=== PATIENT | male | born 1970 | race Hispanic/Latino ===

== ENCOUNTER → 2022-05-13 | Outpatient (CLI) | payer BC | END | disposition home or self-care (01) | LOC: SHCH 11:23 | PROVIDERS: ATTEND Internal Medicine Cardiovascular Disease | DX: R01.1 Cardiac murmur, unspecified (principal) | CPT/HCPCS: 93306 ==

== ENCOUNTER → 2022-07-15 | Outpatient (CLI) | payer BC | END | disposition home or self-care (01) | LOC: SHCH 11:47 | PROVIDERS: ATTEND Internal Medicine Cardiovascular Disease | DX: I87.2 Venous insufficiency (chronic) (peripheral) (principal) | CPT/HCPCS: 93970 ==

== ENCOUNTER → 2022-12-23 | Outpatient (CLI) | payer BC | END | disposition home or self-care (01) | LOC: SHCH 13:17 | PROVIDERS: ATTEND Internal Medicine Cardiovascular Disease | DX: I35.0 Nonrheumatic aortic (valve) stenosis (principal); I10 Essential (primary) hypertension | CPT/HCPCS: 93306 ==

== ENCOUNTER 2023-01-26 05:55 | Day surgery (SDC) | payer BC ==
[2023-01-25 09:16] VITALS: BP 150/90; PULSE 79; RESP 16
[2023-01-25 09:19] LABS: BASOPHILS % (AUTO) 0.7 % (0.0-5.0); EOSINOPHILS % (AUTO) 2.2 % (0.0-8.0); HEMATOCRIT 33.5 % (42-54); LYMPHOCYTES % (AUTO) 29.4 % (21.0-51.0); MEAN CORPUSCULAR HEMOGLOBIN 30.2 pg (27.0-33.0); MEAN CORPUSCULAR HGB CONC 32.2 g/dL (32.0-36.0); MEAN CORPUSCULAR VOLUME 93.6 fL (79-99); MONOCYTES % (AUTO) 9.4 % (3.0-13.0); NEUTROPHILS % (AUTO) 57.9 % (40.0-77.0); PLATELET COUNT (AUTO) 306 K/uL (130-400); RED BLOOD CELL COUNT(AUTO) 3.58 MIL/uL (4.50-6.20); RED CELL DISTRIBUTION WIDTH 12.8 % (11.0-15.5); WHITE BLOOD COUNT (AUTO) 9.2 K/uL (4.8-10.8)
[2023-01-25 09:28] LABS: CREATININE 4.4 mg/dL (0.5-1.5); POTASSIUM 4.4 mmol/L (3.5-5.1)
[2023-01-25 10:09] LABS: INR 0.93 (0.85-1.15); PROTHROMBIN TIME 10.5 SEC (9.6-11.6)
[2023-01-25 10:10] LABS: PARTIAL THROMBOPLASTIN TIME 31.1 SEC (26.3-35.5)
[~2023-01-26] VITALS: Ht 180.3 cm; Wt 86.6 kg
[2023-01-26] VITALS (10 sets, daily range): BP systolic 116–164; BP diastolic 73–90; PULSE 79–84; RESP 10–22
[~2023-01-26 05:55] MED LIST: AEC81 PO; BUME1TAB6 PO; CHOL100046 PO; FERS325 PO; FOLI1TAB85 PO; INSLAN SQ; INSU100C6 SQ; METO-408 PO; NIFE-40 PO
[2023-01-26] MEDS ORDERED: 0.9%NACL 1000ML 1,000 ML IV ONE (06:13)
[2023-01-26] MEDS ORDERED: LIDOCAINE HCL 400MG/20ML VIAL ONE (07:11)
[2023-01-26] MEDS ORDERED: HEPARIN 10,000 UNIT/10ML (1,000 UNIT/ML) VIAL ONE (07:12)
[2023-01-26] MEDS ORDERED: IOHEXOL 350 MG/ML 100ML INFUS..BTL IV ONE (07:12)
[2023-01-26] MEDS ORDERED: NITROGLYCERIN 50MG VIAL ONE (07:12)
[2023-01-26] MEDS ORDERED: FENTANYL CITRATE PF 50 MCG/1 ML 2ML VIAL ONE (07:48)
[2023-01-26] MEDS ORDERED: MIDAZOLAM HCL 1 MG/ML 2ML VIAL ONE (07:49)
[2023-01-26] MEDS ORDERED: NICARDIPINE 25MG INJ IV ONE (08:01)
[2023-01-26] MEDS ORDERED: HYDRALAZINE 20MG/ML VIAL ONE ×2 (08:44→08:57)
[2023-01-26] MEDS ORDERED: DEXTROSE 50%-WATER 50 ML DISP.SYRIN IV PRN (09:30)
[2023-01-26] MEDS ORDERED: 0.9%NACL 1000ML 1,000 ML IV SCH (09:30)
[2023-01-26] MEDS ORDERED: GLUCAGON 1MG KIT 1 MG ML IM PRN (09:30)
== END 2023-01-26 13:15 | disposition home or self-care (01) ==
LOC: DAH 05:55
PROVIDERS: ATTEND Internal Medicine Cardiovascular Disease
DX: I35.0 Nonrheumatic aortic (valve) stenosis (principal); I25.10 Atherosclerotic heart disease of native coronary artery without angina pectoris; R07.89 Other chest pain; I12.9 Hypertensive chronic kidney disease with stage 1 through stage 4 chronic kidney disease, or unspecified chronic kidney disease; E11.22 Type 2 diabetes mellitus with diabetic chronic kidney disease; N18.4 Chronic kidney disease, stage 4 (severe); E78.5 Hyperlipidemia, unspecified; F17.210 Nicotine dependence, cigarettes, uncomplicated; Z79.82 Long term (current) use of aspirin; Z79.899 Other long term (current) drug therapy; Z79.4 Long term (current) use of insulin; Z72.89 Other problems related to lifestyle; Z98.890 Other specified postprocedural states
CPT/HCPCS: 36415; 71045; 80048; 82948; 85025; 85610; 85730; 93005; 93454; 96360; 96361; 99156; 99157; A4606; C1894; J0360; J1644; J2250; J3010; J3490; J7030; Q9967; A4215; A4216; A4221; A4222; A4223; A4663; C1760; Q9965

== ENCOUNTER → 2023-06-10 | Outpatient (CLI) | payer BC | END | disposition home or self-care (01) | LOC: SHCH 10:35 | PROVIDERS: ATTEND Internal Medicine Cardiovascular Disease | DX: R01.1 Cardiac murmur, unspecified (principal) | CPT/HCPCS: 93306 ==

== ENCOUNTER 2023-12-13 06:29 | Day surgery (SDC) | payer BC, MEDICARE ==
[2023-12-11 09:05] VITALS: BP 133/85; PULSE 76; RESP 18
[2023-12-11 09:09] LABS: BASOPHILS # (AUTO) 0.08 K/uL (0.00-0.20); EOSINOPHILS % (AUTO) 8.7 % (0.0-8.0); HEMATOCRIT 33.8 % (42-54); IMMATURE GRANULOCYTE ABSOLUTE 0.04 K/uL (0-1); LYMPHOCYTES # (AUTO) 1.6 K/uL (1.0-4.8); LYMPHOCYTES % (AUTO) 20.3 % (21.0-51.0); MEAN CORPUSCULAR HEMOGLOBIN 29.1 pg (27.0-33.0); MEAN CORPUSCULAR HGB CONC 31.4 g/dL (32.0-36.0); MEAN CORPUSCULAR VOLUME 92.9 fL (79-99); MONOCYTES # (AUTO) 1.2 K/uL (0.1-1.0); MONOCYTES % (AUTO) 14.3 % (3.0-13.0); NEUTROPHILS # (AUTO) 4.5 K/uL (1.8-7.7); NEUTROPHILS % (AUTO) 55.2 % (40.0-77.0); PLATELET COUNT (AUTO) 275 K/uL (130-400); RED BLOOD CELL COUNT(AUTO) 3.64 MIL/uL (4.50-6.20); RED CELL DISTRIBUTION WIDTH 16.1 % (11.0-15.5); WHITE BLOOD COUNT (AUTO) 8.1 K/uL (4.8-10.8)
[2023-12-11 09:52] LABS: POTASSIUM 3.8 mmol/L (3.5-5.1)
[2023-12-11 10:05] LABS: CREATININE 14.6 mg/dL (0.5-1.3)
[~2023-12-13] VITALS: Ht 180.3 cm; Wt 80.0 kg
[2023-12-13] VITALS (8 sets, daily range): BP systolic 143–164; BP diastolic 85–94; PULSE 77–81; RESP 13–17
[~2023-12-13 06:29] MED LIST changes: +ATOR20TA65 PO; -BUME1TAB6 PO; +BUME2TAB5 PO; +CLON0.2T PO; +ERGO500093 PO; -INSLAN SQ; +SEVE800T7 PO; +SODI650T PO; +SUCR500T PO; +TORS100T16 PO
[2023-12-13] MEDS: 0.9%NACL 1000ML 1,000 ML IV ONE (07:42)
[2023-12-13] MEDS ORDERED: PROPOFOL 10 MG/ML 20ML VIAL IV ONE (07:43)
[2023-12-13] MEDS ORDERED: GLYCOPYRROLATE 0.2 MG/ML 5 ML VIAL ONE (07:43)
== END 2023-12-13 10:40 | disposition home or self-care (01) ==
LOC: DAH 06:29 → EDSTATUS 09:30 → DAH 10:40
PROVIDERS: ATTEND Internal Medicine Cardiovascular Disease
DX: I08.0 Rheumatic disorders of both mitral and aortic valves (principal); I33.0 Acute and subacute infective endocarditis; I25.10 Atherosclerotic heart disease of native coronary artery without angina pectoris; E11.22 Type 2 diabetes mellitus with diabetic chronic kidney disease; I12.0 Hypertensive chronic kidney disease with stage 5 chronic kidney disease or end stage renal disease; N18.6 End stage renal disease; E78.5 Hyperlipidemia, unspecified; I87.2 Venous insufficiency (chronic) (peripheral); Z79.01 Long term (current) use of anticoagulants; Z79.899 Other long term (current) drug therapy; Z99.2 Dependence on renal dialysis
CPT/HCPCS: 80048; 85025; 36415; 93005; 82948; 93325; 93312; J7030; J2704; J3490; A4620; A4215; A4223 ×3; A4657; A4213; A7002; A4222; A4221; A4663; A4216; A4606; 99156; 99157

== ENCOUNTER → 2024-05-06 | Outpatient (CLI) | payer BC, MEDICARE ==
--- NOTE | 2024-05-10 14:42 | HMCSR ---
APPROVED REPORT EXAM: Two-dimensional and M-mode echocardiogram with Doppler and color Doppler. INDICATION ICD: Atherosclerotic heart disease of [place] coronary artery without angina pectoris I25.10 RISK FACTORS Hypertension Hyperlipidemia Diabetes 2D Dimensions RVDd3.8 cmLVEF(%)39.0 (>50%)LVED Vol(simp.)245.0 mL IVSd1.6 (0.7-1.1cm)FS(%)19 %LVES Vol(simp.)147.0 mL LVDd5.5 (3.8-5.6cm)IVC diam1.4 cmLVEF(%, simp.)40 % PWd1.6 (0.7-1.1cm)LA ESV INDEX (BP)51.79 mL/m2 LVDs4.5 (2.5-4.0cm) Aortic Valve AoV Vmax2.3 m/Radha Peak GR20.5 mmHgLVOT Vmax0.9 m/s AoV VTI0.5 mAo Mean GR10.7 mmHgLVOT VTI0.21 m Al P1/2T505 ms Mitral Valve MV E Scow976.7 cm/sDECEL Fyyy512 ms MV A Vmax90.7 cm/sP 1/2 T57 ms E/A ratio1.2MVA (PHT)3.9 cm2 TDI E/E' Oiptwk52.2E/E' Nnponjs98.6 Pulmonary Valve PV Vmax0.8 m/sPV VTI0.20 mPV Mean GR2 mmHg PV Peak GR2.7 mmHg Tricuspid Valve TR Vmax3.1 m/sRAP (EST) 3 fjEsDKVA14.2 mmHg TR Peak GR37.2 mmHg Left Ventricle The left ventricle is normal in size. There is paradoxical septal wall motion noted. The other yeboah are grossly normal in function. Moderate concentric left ventricular hypertrophy. Left ventricular sy stolic function is low-normal, estimated LVEF is 50%. Grade 2 diastolic dysfunction. Right Ventricle The right ventricle is normal size. The right ventricular systolic function is normal. Atria The left atrium is severely dilated, 52ml/m2. The right atrium is dilated. Aortic Valve The aortic valve has been replaced by a well seated and normally functioning bioprosthetic valve. PV 2.3m/s, MG 11mmHg, DVI 0.4 Mild perivalvular leak. AV Dimensionless Index is 0.44 Mitral Valve The mitral valve is normal in structure and function. The leaflets are mildly thickened and calcified . Trace mitral regurgitation. There is no mitral valve stenosis. Tricuspid Valve The tricuspid valve is normal in structure and function. Mild tricuspid regurgitation. RVSP is 37mmHg . Pulmonic Valve Pulmonic valve is not well visualized. Great Vessels The aortic root is not well visualized but is probably normal size. The IVC is normal in size and col lapses >50% with inspiration. Pericardium Trace circumferential pericardial effusion. Conclusion The left atrium is severely dilated, 52ml/m2. The right atrium is dilated. Moderate concentric left ventricular hypertrophy. There is paradoxical septal wall motion noted. The other yeboah are grossly normal in function. Left ventricular systolic function is low-normal, estimated LVEF is 50%. Grade 2 diastolic dysfunction. The aortic valve has been replaced by a well seated and normally functioning bioprosthetic valve. PV 2.3m/s, MG 11mmHg, DVI 0.4 Mild perivalvular leak. Trace mitral regurgitation. Mild tricuspid regurgitation. PASP is 40 mmHg. Trace circumferential pericardial effusion.
== END | disposition home or self-care (01) ==
LOC: SHCH 13:39
PROVIDERS: ATTEND Internal Medicine Cardiovascular Disease
DX: I25.10 Atherosclerotic heart disease of native coronary artery without angina pectoris (principal)
CPT/HCPCS: 93306

== ENCOUNTER → 2024-12-24 | Outpatient (CLI) | payer MEDICARE ==
[2024-12-24] MEDS: REGADENOSON 0.4 MG/5 ML PF SYG IVP ONE (11:17)
== END | disposition home or self-care (01) ==
LOC: SHCH 09:17
PROVIDERS: ATTEND Internal Medicine Cardiovascular Disease
DX: I35.0 Nonrheumatic aortic (valve) stenosis (principal); R06.00 Dyspnea, unspecified; Z79.899 Other long term (current) drug therapy
CPT/HCPCS: 78452; 93017; J2785; A9500 ×2